=== PATIENT | female | born 1980 | race Caucasian/White ===

== ENCOUNTER → 2018-09-13 | Outpatient (CLI) | payer BC ==
[2018-09-13 15:17] LABS: CREATININE 0.7 mg/dL (0.6-1.3)
== END ==
LOC: M.CT 09-11 08:30 → M.LAB 14:49 → M.CT 14:49
PROVIDERS: Internal Medicine Cardiovascular Disease
DX: I71.9 Aortic aneurysm of unspecified site, without rupture (principal); I10 Essential (primary) hypertension; Z88.2 Allergy status to sulfonamides; Z82.49 Family history of ischemic heart disease and other diseases of the circulatory system